=== PATIENT | female | born 1945 | race Caucasian/White ===

== ENCOUNTER 2017-07-23 13:02 | Outpatient (CLI) | payer MEDICARE ==
--- NOTE | 2017-07-23 18:04 | MMO ---
BILATERAL SCREENING MAMMOGRAM: DATE: 07/23/2017 COMPARISON: Comparison made to prior mammograms dating back to 03/2013. The exam is interpreted with the assistance of computer-aided detection. FINDINGS: There is heterogeneously dense breast parenchyma bilaterally limiting sensitivity of mammography. D iffuse bilateral benign-appearing calcifications are stable appearing. No new suspicious abnormalit ies are present. IMPRESSION: BIRADS 2 - Benign findings. Annual screening mammography recommended. POS: SHEREE
== END 2017-07-23 13:03 | disposition home or self-care (01) ==
LOC: MAMMO 13:02
PROVIDERS: ATTEND Obstetrics & Gynecology
DX: Z12.31 Encounter for screening mammogram for malignant neoplasm of breast (principal)
CPT/HCPCS: 77067; G0202

== ENCOUNTER 2018-07-25 09:52 | Outpatient (CLI) | payer MEDICARE | END 2018-07-25 09:53 | disposition home or self-care (01) | LOC: BICMAMMO 09:52 | PROVIDERS: ATTEND Obstetrics & Gynecology | DX: Z12.31 Encounter for screening mammogram for malignant neoplasm of breast (principal) | CPT/HCPCS: 77063; 77067 ==

== ENCOUNTER 2018-08-06 21:49 | Observation (INO) | payer MEDICARE ==
[2018-08-06 22:24] LABS: #Eosinphils 0.1 thou/uL (0.0-0.7); #Lymphocytes 1.9 thou/uL (1.20-3.40); #Monocytes 0.5 thou/uL (0.11-0.59); #Neutrophils 6.6 thou/uL (1.40-6.50); %Basophils 0.4 % (0.0-1.0); %Eosinophils 0.7 % (0.0-10.0); %Lymphocytes 20.8 % (21.0-51.0); %Monocytes 5.5 % (0.0-10.0); %Neutrophils 72.6 % (42.0-75.0); Hemoglobin 13.9 g/dL (12.0-16.0); Mean Corpuscular HGB CONC 33.2 g/dL (32.0-36.0); Mean Corpuscular Hemoglobin 31.1 pg (27.0-31.0); Mean Corpuscular Volume 93.5 fL (78.0-98.0); Mean Platelet Volume 7.6 fL (7.4-10.4); Platelet Count 270 thou/uL (130-400); RBC Distribution Width 11.8 % (11.5-14.5); Red Blood Cell (RBC) Count 4.47 mill/uL (4.20-5.40); White Blood Cell (WBC) Count 9.1 thou/uL (4.8-10.8)
[2018-08-06 22:44] LABS: ALT (SGPT) 15 U/L (8-55); AST (SGOT) 19 U/L (5-34); Albumin 4.3 g/dL (3.4-4.8); Alkaline Phosphatase 62 U/L (40-150); Anion Gap 12 mmol/L (10-20); BUN (Urea Nitrogen) 22 mg/dL (9.8-20.1); Bilirubin, Total 0.4 mg/dL (0.2-1.2); Calc. Creatinine Clearance 0 mL/min (70-130); Calcium 9.7 mg/dL (7.8-10.44); Carbon Dioxide 23 mmol/L (23-31); Chloride 104 mmol/L (98-107); Estimated GFR-MDRD 65; Globulin 3.8 g/dL (2.4-3.5); Glucose 127 mg/dL (80-115); Potassium 4.2 mmol/L (3.5-5.1); Protein, Total 8.1 g/dL (6.0-8.3); Sodium 135 mmol/L (136-145)
[2018-08-06] MEDS ORDERED: Ondansetron HCl/PF 4 MG/2 ML Vial ONE (23:19)
[2018-08-06] MEDS ORDERED: Morphine 4 MG/ML VIAL ONE (23:19)
[2018-08-06 23:22] LABS: Bilirubin Negative (Negative); Blood, Urine Small (Negative); Clarity TURBID (Clear); Glucose, Urine (Dipstick) Negative (Negative); Leukocyte Large (Negative); Nitrite Negative (Negative); Protein, Urine (Dipstick) 30 mg/dL (Neg-Trace); Urobilinogen 0.2 mg/dL (0.2-1.0)
[2018-08-06 23:25] LABS: Bacteria/HPF 1+ HPF (None Seen); Hyaline Casts/LPF 4-6 HYALINE CAST LPF (0-3 Hyaline); Pathc Cast-AUWi Flag 1.59 (0-2.49); Squamous Epithelial 21-50 HPF (0-3)
--- NOTE | 2018-08-06 23:39 | CT ---
CT ABDOMEN AND PELVIS NONCONTRAST 08/06/18 HISTORY: Left flank pain. FINDINGS: Each renal collecting system, ureter, and the urinary bladder are decompressed without stone evident. Phleboliths are seen outside of the course of each ureter within the retroperitoneum. Lack of contrast limits evaluation for other abnormalities. Calcification throughout the arterial str uctures. Diverticula arise from the colon without adjacent inflammation. IMPRESSION: No CT evidence of urinary tract obstruction or calcification. Atherosclerosis. Diverticulosis. No evidence of diverticulitis. POS: SHEREE
[2018-08-07] MEDS ORDERED: Morphine 4 MG/ML VIAL ONE (00:30)
[2018-08-07] MEDS ORDERED: cefTRIAXone\\ROCEPHIN 1 GM VIAL ONE (00:30)
[2018-08-07] MEDS ORDERED: Morphine 4 MG/ML VIAL SLOW IVP PRN (03:15)
[2018-08-07] MEDS ORDERED: Ondansetron HCl/PF 4 MG/2 ML Vial IVP PRN (03:16)
[2018-08-07] MEDS ORDERED: Acetaminophen 325 MG TAB PO PRN (03:16)
[2018-08-07] MEDS ORDERED: Ondansetron ODT 4 MG TAB SL PRN (03:16)
[2018-08-07] MEDS ORDERED: hydrALAZINE 20 MG/ML VIAL SLOW IVP PRN (03:48)
[2018-08-07 04:16] VITALS: BMI 35.4
[2018-08-07] MEDS ORDERED: Promethazine HCl 25 MG/ML VIAL SLOW IVP PRN (04:30)
[2018-08-07] MEDS: Levothyroxine Sodium 75 MCG TAB PO SCH (05:34)
--- NOTE | 2018-08-07 06:15 | HP ---
CHIEF COMPLAINT: Left lower quadrant pain. HISTORY OF PRESENT ILLNESS: This is a 72-year-old female presenting to the ED with chief complaint of 1-week of left flank pain and left lower quadrant pain, which has gotten worse in the past 2 days, especially worse today on the day of admission at 1500. Patient reports that the pain has been radiating towards her inguinal region and also to her hip. At this time, the patient denies any dysuria. Denies any increase in frequency or any burning sensation with urination. The patient admits to having nausea, but denies any vomiting, diarrhea, fever, chills, or hematuria. Per the patient, currently her pain is a 3/10. On admission patient's pain was 10/10 and it was worse with movement and Advil seems to help a little bit with the pain. At this point, the patient states that her morphine that she took has helped alleviate some of the pain. REVIEW OF SYSTEMS: Positive for nausea, left lower quadrant pain, otherwise as documented in the HPI. All other systems were reviewed and are negative. FAMILY HISTORY: Reviewed and noncontributory to this visit. PAST MEDICAL HISTORY: Hypothyroidism, hypertension. PAST SURGICAL HISTORY: Right breast cyst removal. PSYCHIATRIC HISTORY: No previous psychiatric history. SOCIAL HISTORY: Patient is a social drinker. Denies any illicit drug use. Denies any smoking history. KNOWN ALLERGIES: The patient does not have any allergies. CURRENT MEDICATIONS: Patient takes levothyroxine 75 mcg and lisinopril 10 mg. PHYSICAL EXAMINATION: VITAL SIGNS: Blood pressure 177/119, pulse of 90, respiratory rate of 18, temperature of 98.2, oxygen saturation of 95 on room air. GENERAL: The patient is lying in bed, appears nauseous, nontoxic, not in acute distress, able to speak in full sentences. HEENT: Normocephalic, atraumatic. Pupils are equal, round, and reactive to light. Extraocular movements are intact. No scleral icterus, no conjunctival pallor. Mucous membranes are dry. NECK: No JVD. Trachea is midline. No tracheal deviation. Supple. LUNGS: Clear to auscultation bilaterally. No wheezing, no rales, no rhonchi appreciated. CARDIAC: Positive S1, S2. Regular rate and rhythm. No murmurs, no gallops, no rubs appreciated. ABDOMEN: Tenderness in the left lower quadrant. Positive bowel sounds in all quadrants. Obese abdomen. No pulsatile masses, no masses, no peritoneal signs. BACK: Negative for CVA tenderness. EXTREMITIES: Upper extremities: 5/5 upper extremity strength, good pulses bilaterally. Lower extremity: 5/5 lower extremity strength. No edema. Good pulses bilaterally. NEUROLOGIC: Cranial nerves II through XII grossly intact. No neurologic deficits noted. SKIN: Warm, dry, and intact. No rashes noted. PSYCHIATRIC: Alert, oriented x3, normal affect. In the ED, the patient received Rocephin, morphine, Zofran. IMAGING: CT of the abdomen and pelvis showed diverticulosis, no evidence of diverticulitis. No CT evidence of urinary tract obstructions or calcifications. LABORTAORY DATA: WBC 9.1, hemoglobin 13.9, hematocrit 41.7, MCV 93.5, RDW was 11.8, platelet count is 270,000. Sodium is 135, potassium is 4.2, chloride is 104, carbon dioxide of 23, anion gap of 12, BUN is 22, creatinine is 0.86, GFR 65, glucose 127, AST is 19, ALT is 15, alkaline phosphatase is 62, lipase is 25. Urinalysis: Turbid urine. Urine protein is 30, ketones trace, small blood , negative nitrite, large leukoesterase, squamous epithelial cells is 21-50, wbc 's greater than 50. ASSESSMENT AND PLAN: This is a 72-year-old female being admitted for; 1. Left lower quadrant pain likely secondary to urinary tract infection. Patient's urinalysis shows large leukoesterase, however, epithelial cells are very large at 21-50, so at this point, we will get repeat of urinalysis. We will continue patient on empiric treatment with Rocephin. We have ordered transvaginal ultrasound since the patient is having severe pain at the left inguinal region and CT scan of the abdomen and pelvis has been negative. We will get the ultrasound to rule out any ovarian pathologies. 2. Dehydration. We will continue the patient on IV hydration. We will monitor the patient closely. 3. History of hypothyroidism. We will continue the patient on levothyroxine. 4. History of hypertension. We will continue patient on home dose of lisinopril. 5. Deep venous thrombosis and gastrointestinal prophylaxis. MTDD
[2018-08-07] MEDS: Ketorolac Tromethamine 30 MG/ML VIAL IVP PRN ×2 (08:24→18:10)
[2018-08-07] MEDS: Lisinopril 10 MG TAB PO SCH (08:25)
[2018-08-07 09:13] LABS: #Basophils 0.1 thou/uL (0.0-0.2); #Lymphocytes 1.5 thou/uL (1.20-3.40); #Monocytes 0.4 thou/uL (0.11-0.59); #Neutrophils 7.6 thou/uL (1.40-6.50); %Basophils 0.6 % (0.0-1.0); %Eosinophils 0.2 % (0.0-10.0); %Lymphocytes 15.3 % (21.0-51.0); %Monocytes 4.5 % (0.0-10.0); %Neutrophils 79.4 % (42.0-75.0); Hemoglobin 13.2 g/dL (12.0-16.0); Mean Corpuscular HGB CONC 32.9 g/dL (32.0-36.0); Mean Corpuscular Hemoglobin 30.9 pg (27.0-31.0); Mean Platelet Volume 7.4 fL (7.4-10.4); Platelet Count 247 thou/uL (130-400); RBC Distribution Width 11.9 % (11.5-14.5); Red Blood Cell (RBC) Count 4.28 mill/uL (4.20-5.40); White Blood Cell (WBC) Count 9.5 thou/uL (4.8-10.8)
[2018-08-07 09:32] LABS: Anion Gap 11 mmol/L (10-20); BUN (Urea Nitrogen) 19 mg/dL (9.8-20.1); CRP (Inflammatory) Less than 0.50 mg/dL (= or < 0.5); Calc. Creatinine Clearance 98 mL/min (70-130); Calcium 9.7 mg/dL (7.8-10.44); Carbon Dioxide 25 mmol/L (23-31); Chloride 105 mmol/L (98-107); Estimated GFR-MDRD 78; Glucose 133 mg/dL (80-115); Magnesium 1.8 mg/dL (1.6-2.6); Sodium 137 mmol/L (136-145)
--- NOTE | 2018-08-07 10:35 | ULT ---
PELVIC ULTRASOUND: Indication: Left lower quadrant pain. FINDINGS: Grayscale and doppler color flow imaging performed. FINDINGS: The ovaries are not visualized for comment. The uterus is visualized and is heterogeneous in echotext ure. Endometrial stripe is borderline in size measuring 4-5 mm in thickness. There is no significant free pelvic fluid. Patient declined transvaginal imaging which does limit assessment. Urinary bladder is decompressed. IMPRESSION: 1. Nonvisualization of the ovaries. 2. Borderline sized endometrial stripe, 4-5 mm. Recommend clinical evaluation in this regard. POS: SHEREE
[2018-08-07] MEDS: Sodium Chloride 0.9% 1,000 ML IV SCH ×3 (10:53→18:51)
[2018-08-07] MEDS ORDERED: cefTRIAXone\\ROCEPHIN 1 GM in Sodium Chloride 0.9% 100 ML IVPB SCH (23:00)
[2018-08-08] MEDS: Sodium Chloride 0.9% 1,000 ML IV SCH ×2 (03:40→11:58)
[2018-08-08] MEDS: Ketorolac Tromethamine 30 MG/ML VIAL IVP PRN (03:45)
[2018-08-08] MEDS ORDERED: Ondansetron ODT 4 MG TAB SL PRN (05:05)
[2018-08-08] MEDS ORDERED: Ondansetron HCl/PF 4 MG/2 ML Vial IVP PRN (05:05)
[2018-08-08] MEDS: Levothyroxine Sodium 75 MCG TAB PO SCH (06:20)
--- NOTE | 2018-08-08 08:17 | EKG ---
Test Reason : HAD TACHYCARDIA Blood Pressure : / mmHG Vent. Rate : 062 BPM Atrial Rate : 062 BPM P-R Int : 140 ms QRS Dur : 086 ms QT Int : 426 ms P-R-T Axes : 062 004 035 degrees QTc Int : 432 ms Normal sinus rhythm Normal ECG No previous ECGs available Confirmed by KEARA PUGA ([id number]) on 08/08/2018 8:17:01 AM Referred By: ALE Confirmed By:KEARA PUGA
[2018-08-08] MEDS: Acetaminophen 325 MG TAB PO PRN ×2 (08:35→15:24)
[2018-08-08] MEDS: Lisinopril 10 MG TAB PO SCH (08:35)
[2018-08-08] MEDS ORDERED: Gabapentin 100 MG CAP PO SCH (09:00)
[2018-08-08] MEDS: Gabapentin 100 MG CAP PO SCH ×2 (10:02→15:24)
[2018-08-08 11:18] VITALS: BP 150/66; TEMP 98.2
--- NOTE | 2018-08-08 15:36 | DIS ---
DATE OF ADMISSION: 08/07/2018 DATE OF DISCHARGE: 08/08/2018 DISCHARGE DISPOSITION: Home. FOLLOWUP: 1. Follow up with primary care physician Dr. Christina Baig in 1 week. 2. Please follow up on final urine cultures. DISCHARGE MEDICATIONS: 1. Ciprofloxacin 250 mg twice a day for 1 week. 2. Gabapentin 100 mg 3 times a day. 3. Florastor 250 daily. 4. Tylenol as needed. 5. Lisinopril 10 mg daily. 6. Levothyroxine 75 mcg daily. BRIEF HOSPITAL COURSE: The patient is a 72-year-old female with hypertension who presented to the em ergency room with left-sided flank pain. Please refer to the history and physical for further detail s. The patient was admitted to the hospital with a diagnosis of left lower flank pain, probably secondar y to urinary tract infection. A CT scan of the abdomen and pelvis done in the emergency room was neg ative for urinary tract obstruction or calcification. It showed diverticulosis without any evidence of diverticulitis. Urinalysis showed greater than 50 WBCs with 1+ bacteria. Urine culture today is still pending. Due to some possible neuropathic component to her pain, low dose gabapentin was added . She was placed on IV ceftriaxone that has been changed to ciprofloxacin. Plan of care was discuss ed with the patient in detail. She stated understanding. FINAL DIAGNOSES: 1. Left lower flank pain, probably secondary to urinary tract infection. Other possibility includes lumbar degenerative joint disease. 2. Dehydration. 3. Hypothyroidism. 4. Hypertension. 5. Obesity with a BMI 35.4. 6. Mild hyponatremia. SIGNIFICANT LABORATORY DATA: ESR 10, CRP less than 0.5. TSH 1.6, lipase 25. LFTs in normal range, creatinine 0.74 with BUN 19 on the day of discharge. Plan of care was discussed with the patient in detail. She stated understanding.
--- NOTE | 2018-08-10 11:22 | PDOC.EVN ---
Event Note - Event Note Event Note: Update 08/10. Urine culture reviewed - Spoke to the patient and advised to STOP Cipro. Started on Omnicef.
== END 2018-08-08 15:24 | disposition home or self-care (01) ==
LOC: ERS 21:49 → 2SW 08-07 01:15
PROVIDERS: ADMIT Internal Medicine; ATTEND Internal Medicine
DX: R10.32 Left lower quadrant pain (principal); E03.9 Hypothyroidism, unspecified; I10 Essential (primary) hypertension; E87.1 Hypo-osmolality and hyponatremia; E86.0 Dehydration; K57.30 Diverticulosis of large intestine without perforation or abscess without bleeding; E66.9 Obesity, unspecified; Z68.35 Body mass index [BMI] 35.0-35.9, adult; Z79.899 Other long term (current) drug therapy
CPT/HCPCS: 74176; 76856; 80048; 80053; 83690; 83735; 84443; 85025 ×2; 85652; 86140; 87077; 87086; 87186; 93005; 96361 ×2; 96365; 96366; 96375 ×2; 96376 ×3; 97139; 99285; G0378; 36415; 81003; 81015; 93010; J0360; J0696; J1885; J2270; J2405; J2550; J7050

== ENCOUNTER 2019-07-28 10:44 | Outpatient (CLI) | payer MEDICARE ==
--- NOTE | 2019-07-28 13:07 | BD ---
BONE DENSITOMETRY: Date: 07/28/19 HISTORY: Postmenopausal screening. FINDINGS: Lumbar Spine: BMD (g/cm2) L1 1.047 T-Score: 0.5 L2 1.090 T-Score: 0.6 L3 1.109 T-Score: 0.2 L4 1.104 T-Score: 0.4 Total 1.089 T-Score: 0.4 Left Femoral Neck: 0.800 T-Score: -0.4 Total Femur: 0.999 T-Score: 0.5 IMPRESSION: Bone mineral density of the lumbar spine and femoral neck are both within normal range. POS: SHEREE
--- NOTE | 2019-07-28 13:21 | MMO ---
Bilateral MAMMO Bilat Screen [facility]. CLINICAL HISTORY: Patient is 73 years old and is seen for screening. The patient has no family history of breast cancer. The patient has no personal history of cancer. VIEWS: The views performed were: bilateral craniocaudal with tomosynthesis and bilateral mediolateral oblique with tomosynthesis. FILMS COMPARED: The present examination has been compared to a prior imaging study performed at [facility] on 07/25/2018. This study has been interpreted with the assistance of computer-aided detection. MAMMOGRAM FINDINGS: There are scattered fibroglandular densities. Benign calcifications are noted bilaterally. There are no suspicious masses, suspicious calcifications, or new areas of architectural distortion. IMPRESSION: THERE IS NO MAMMOGRAPHIC EVIDENCE OF MALIGNANCY. A ROUTINE FOLLOW-UP MAMMOGRAM IN 1 YEAR IS RECOMMENDED. THE RESULTS OF THIS EXAM WERE SENT TO THE PATIENT. ACR BI-RADS Category 2 - Benign finding MAMMOGRAPHY NOTE: 1. A negative mammogram report should not delay a biopsy if a dominant of clinically suspicious mass is present. 2. Approximately 10% to 15% of breast cancers are not detected by mammography. 3. Adenosis and dense breasts may obscure an underlying neoplasm. Reported by: JEWEL DAWSON MD Electonically Signed: [id number]
== END 2019-07-28 10:45 | disposition home or self-care (01) ==
LOC: BICMAMMO 10:44
PROVIDERS: ATTEND Family Medicine
DX: Z12.31 Encounter for screening mammogram for malignant neoplasm of breast (principal); M81.0 Age-related osteoporosis without current pathological fracture
CPT/HCPCS: 77063; 77067; 77080

== ENCOUNTER 2020-04-20 10:03 | Outpatient (CLI) | payer MEDICARE ==
--- NOTE | 2020-04-20 12:40 | MRI ---
MRI LUMBAR SPINE WITHOUT CONTRAST: INDICATION: Lumbago with sciatica. Low back pain. FINDINGS: Lumbar vertebrae maintain normal height. Vertebral body signal is normal with degenerative end plate changes seen at the superior end plate of T12. Degenerative spurring at T11-T12 and T12-L1 is promi nent. Mild loss of disk space at L4-5. Slight anterolisthesis at L4-5. Findings at each level are described. L1-2: Mild disk bulge with mild facet hypertrophy. No central canal or foraminal stenosis. L2-3: Broad-based disk bulge flattens the thecal sac. Moderate facet hypertrophy with posterior epi dural fat. Mild to moderate central canal stenosis. Mild bilateral foraminal narrowing slightly mor e pronounced on the left due to disk bulge and facet hypertrophy. L3-4: Mild diffuse disk bulge. Facet and ligamentous hypertrophy. Mild to moderate central canal s tenosis. No significant foraminal stenosis. L4-5: Mild anterolisthesis. Broad-based disk bulge. Prominent facet hypertrophy and arthrosis. Mo derate central canal stenosis. Bilateral foraminal stenosis. L5-S1: Mild disk bulge. Moderate facet hypertrophy. No significant central canal stenosis. There is mild left foraminal encroachment secondary to disk-osteophyte complex and facet hypertrophy. A br oad-based disk bulge does abut both traversing S1 nerve roots possibly slightly displacing the left S 1 nerve root. IMPRESSION: Degenerative disk changes. Moderate central canal stenosis at multiple levels with foraminal stenos is as described above. POS: WILLEM
== END 2020-04-20 10:04 | disposition home or self-care (01) ==
LOC: BICMRI 10:03
PROVIDERS: ATTEND Family Medicine
DX: M51.16 Intervertebral disc disorders with radiculopathy, lumbar region (principal); M48.061 Spinal stenosis, lumbar region without neurogenic claudication
CPT/HCPCS: 72148

== ENCOUNTER 2021-09-12 11:59 | Outpatient (CLI) | payer MEDICARE | END 2021-09-12 12:00 | disposition home or self-care (01) | LOC: BICMAMMO 11:59 | PROVIDERS: ATTEND Family Medicine | DX: Z12.31 Encounter for screening mammogram for malignant neoplasm of breast (principal) | CPT/HCPCS: 77063; 77067 ==

== ENCOUNTER 2022-12-21 10:37 | Outpatient (CLI) | payer MEDICARE | END 2022-12-21 10:38 | disposition home or self-care (01) | LOC: BICMAMMO 10:37 | PROVIDERS: ATTEND Family Medicine | DX: Z12.31 Encounter for screening mammogram for malignant neoplasm of breast (principal); Z91.89 Other specified personal risk factors, not elsewhere classified | CPT/HCPCS: 77063; 77067 ==